=== PATIENT | female | born 1945 | race Caucasian/White ===

== ENCOUNTER 2018-01-18 12:14 | Emergency (ER) | payer OTHER ==
[~2018-01-18] VITALS: Ht 162.6 cm; Wt 73.9 kg
[2018-01-18] MEDS ORDERED: PLAVIX75 MG (13:38)
[2018-01-18] MEDS ORDERED: CELEBREX200MG (13:38)
== END 2018-01-18 20:54 | disposition home or self-care (01) ==
LOC: ER 12:14
DX: J45.909 Unspecified asthma, uncomplicated (principal); B34.9 Viral infection, unspecified